=== PATIENT | male | born 1955 | race Caucasian/White ===

== ENCOUNTER → 2017-05-25 | Outpatient (CLI) | payer OTHER ==
[~2017-05-25] MED LIST: ASPIRINEC PO; FLEXERIL PO; LOMOTIL TABLET1 TAB PO; PHENERGAN PO; TOPROL XL PO; VICODIN 5/500 T1 TAB PO
--- NOTE | ~2017-05-25 | HM ---
Unit #: [id number] #: [id number] Patient: GLENDA GONCALVES [id number] [address] [address] [id number] O MR#: [id number] NAME: GLENDA GONCALVES : 1955 SEX: M STUDY DATE/TIME: 05/25/2017 UNIT: [facility] ROOM: STUDY DESCRIPTION: Holter Monitor Attending Physician: Halima Perez Aprn Referring Physician: Halima Perez Aprn Primary Care Physician: Raoul Warren M.D. CARDIOLOGY REPORT EXAM Holter Monitor DATE APPLIED 05/25/2017 DATE SCANNED 05/27/2017 ORDERED BY Halima Perez APRN READ BY Dr. Shaun Vasquez REASON FOR TEST Irregular Heartbeat COMMENTS 1. Underlying rhythm is normal sinus. Minimal recorded heart rate is 45, maximal recorded heart rate 103 with an average heart rate of 62 beats per minute. 2. Sinus arrhythmia is seen. 3. There are occasional premature ventricular contractions with a total of 4342 beats in 24 hours. There are 37 premature ventricular couplets. No runs of ventricular tachycardia recorded. 4. Frequent premature atrial contractions are noted. 5. There were 91 premature atrial couplets. 6. There are 24 runs of atrial tachycardia with 1:1 AV conduction. Average heart rate during runs of atrial tachycardia is 145 beats per minute. Longest run of atrial tachycardia is 4 beats at rates varying between 92 beats per minute to 148 beats per minute. All runs of supraventricular tachycardia convert back to normal sinus rhythm without intervening bradycardia. 7. There is no AV memo block, sinus arrest or sinus pause. 8. No sustained atrial or ventricular tachyarrhythmia is noted. 9. The patient did not maintain a symptom or an activity diary. Dictated by... Alvin Vasquez M.D. Unit #: [id number] #: [id number] Patient: GLENDA GONCALVES AKU/elsy TD: 05/28/2017 08:15 JOB #: [id number] CC: Halima Perez Aprn CARDIOLOGY REPORT Page 1 of 1 X Alvin Vasquez MD HOLTER MONITOR REPORT
== END | disposition home or self-care (01) ==
LOC: CEKG 14:05
DX: I49.9 Cardiac arrhythmia, unspecified (principal)
CPT/HCPCS: 93225; 93226